=== PATIENT | male | born 1960 | race Caucasian/White ===

== ENCOUNTER 2021-06-13 14:34 | Emergency (ER) | payer SELFPAY ==
[~2021-06-13] VITALS: Ht 170.2 cm; Wt 70.0 kg
[2021-06-13 14:38] VITALS: BP 127/78
== END 2021-06-13 22:00 | disposition left against medical advice (07) ==
LOC: ER 14:51
DX: Z53.21 Procedure and treatment not carried out due to patient leaving prior to being seen by health care provider (principal)